=== PATIENT | female | born 1995 | race Hispanic/Latino ===

== ENCOUNTER 2018-01-01 01:41 | Emergency (ER) | payer OTHER ==
--- NOTE | 2018-01-01 03:27 | ER ---
Nurse's Notes [facility] Name: Ling Bauman Age: 22 yrs Sex: Female : 1995 Arrival Date: 01/01/2018 Time: 01:45 Bed 19 Private MD: Diagnosis: Otitis media, unspecified, bilateral Presentation: 01/01 02:02 Presenting complaint: Patient states: congestion and not feeling well x 2 days. Reports aa1 when she lays down to go to sleep she can't breathe. Pt is also 18 weeks . Transition of care: patient was not received from another setting of care. Onset of symptoms was December 29, 2017. Care prior to arrival: None. 02:02 Method Of Arrival: Ambulatory aa1 02:02 Acuity: MARCELLA 4 aa1 Triage Assessment: 02:03 General: Appears in no apparent distress. comfortable, Behavior is calm, cooperative, aa1 appropriate for age. 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 - Social history:: Smoking status: Patient/guardian denies using tobacco. Screenin:13 Abuse screen: Denies threats or abuse. Nutritional screening: No deficits noted. jd3 Tuberculosis screening: No symptoms or risk factors identified. Fall Risk None identified. Assessment: 02:07 General: Appears in no apparent distress. Behavior is calm, cooperative, appropriate jd3 for age. 02:08 Pain: Denies pain. Neuro: Level of Consciousness is awake, alert, obeys commands, jd3 Oriented to person, place, time, situation. Cardiovascular: Heart tones S1 S2 present Capillary refill < 3 seconds Patient's skin is warm and dry. Respiratory: Reports "stuffy nose and drainage" Airway is patent Respiratory effort is even, unlabored, Respiratory pattern is regular, symmetrical, Breath sounds are clear bilaterally. GI: No signs and/or symptoms were reported involving the gastrointestinal system. : No signs and/or symptoms were reported regarding the genitourinary system. EENT: No signs and/or symptoms were reported regarding the EENT system. Derm: Skin is intact, Skin is dry, Skin is normal, Skin temperature is warm. Musculoskeletal: Circulation, motion, and sensation intact. Range of motion: intact in all extremities. 03:13 Reassessment: Patient appears in no apparent distress at this time. Patient and/or jd3 family updated on plan of care and expected duration. Pain level reassessed. Patient is alert, oriented x 3, equal unlabored respirations, skin warm/dry/pink. 03:42 Reassessment: Patient appears in no apparent distress at this time. Patient and/or jd3 family updated on plan of care and expected duration. Pain level reassessed. Patient is alert, oriented x 3, equal unlabored respirations, skin warm/dry/pink. pt reported understanding of discharge instructions, even and steady gait noted upon discharge. Vital Signs: 02:03 BP 122 / 74; Pulse 98; Resp 18; Temp 97.5(O); Pulse Ox 100% on R/A; Weight 74.84 kg; aa1 Height 5 ft. 4 in. (162.56 cm); Pain 0/10; 03:12 BP 116 / 63; Pulse 93; Resp 17 S; Pulse Ox 100% on R/A; Pain 0/10; jd3 02:03 Body Mass Index 28.32 (74.84 kg, 162.56 cm) aa1 ED Course: 01:45 Patient arrived in ED. am2 01:59 Ace Chavez PA is PHCP. cp 01:59 Ace Molina MD is Attending Physician. cp 02:03 Triage completed. aa1 02:03 Arm band placed on right wrist. Patient placed in an exam room, on a stretcher. aa1 02:07 Canelo Devlin, RN is Primary Nurse. jd3 03:13 Patient has correct armband on for positive identification. Bed in low position. Call jd3 light in reach. Side rails up X 1. Adult w/ patient. 03:39 No provider procedures requiring assistance completed. Patient did not have IV access jd3 during this emergency room visit. Administered Medications: No medications were administered Outcome: 03:27 Discharge ordered by . cp 03:42 Discharged to home ambulatory, with family. jd3 03:42 Condition: stable 03:42 Discharge instructions given to patient, family, Instructed on discharge instructions, follow up and referral plans. medication usage, Demonstrated understanding of instructions, follow-up care, medications, Prescriptions given X 1. 03:43 Patient left the ED. jd3 Signatures: Bhakti Melvin RN RN aa1 Ace Chavez PA PA cp Moreno, Amanda am2 Canelo Devlin RN RN jd3 Corrections: (The following items were deleted from the chart) 02:09 02:07 General: Appears in no apparent distress. Behavior is calm, cooperative, jd3 appropriate for age, jd3
--- NOTE | 2018-01-01 03:27 | EDPHYS ---
Physician Documentation [facility] Name: Ling Bauman Age: 22 yrs Sex: Female : 1995 Arrival Date: 01/01/2018 Time: 01:45 Bed 19 Private MD: ED Physician Ace Molina HPI: 01/01 02:15 This 22 yrs old Female presents to ER via Ambulatory with complaints of Nasal cp Congestion, Breathing Difficulty, 18 wks preg. 02:15 The patient or guardian reports nasal congestion. Onset: The symptoms/episode cp began/occurred 2 day(s) ago. Severity of symptoms: in the emergency department the symptoms are unchanged, despite home interventions. Associated signs and symptoms: Pertinent positives: earache, Pertinent negatives: fever, sore throat, cough. 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 - Social history:: Smoking status: Patient/guardian denies using tobacco. ROS: 02:20 Constitutional: Negative for body aches, chills, fever, poor PO intake. cp 02:20 Eyes: Negative for injury, pain, redness, and discharge. cp 02:20 ENT: Positive for ear pain, sinus congestion, nasal congestion, Negative for drainage from ear(s), sore throat, difficulty swallowing, difficulty handling secretions, hoarseness. 02:20 Respiratory: Negative for cough, wheezing. 02:20 Abdomen/GI: Negative for abdominal pain, nausea, vomiting, and diarrhea. 02:20 : Negative for urinary symptoms, vaginal bleeding, vaginal discharge. 02:20 Skin: Negative for cellulitis, rash. 02:20 Neuro: Negative for altered mental status, headache, weakness. 02:20 All other systems are negative. Exam: 02:25 Constitutional: The patient appears in no acute distress, alert, awake, cp non-diaphoretic, non-toxic, well developed, well nourished. 02:25 Head/face: Sinus tenderness, that is mild, is located over the right frontal sinus and cp left frontal sinus. 02:25 Eyes: Periorbital structures: appear normal, Pupils: equal, round, and reactive to light and accomodation, Extraocular movements: intact throughout, Conjunctiva: normal, no exudate, no injection, Sclera: no appreciated abnormality, Lids and lashes: appear normal, bilaterally. 02:25 ENT: External ear(s): are unremarkable, Ear canal(s): are normal, clear, TM's: bulging, is not appreciated, bilaterally, erythema, that is mild, bilaterally, Nose: nasal drainage, that is minimal, noted congestion, Mouth: Lips: moist, Oral mucosa: pink and intact, moist, Posterior pharynx: Airway: no evidence of obstruction, patent, Tonsils: are normal in appearance, Uvula: midline, swelling, is not appreciated, erythema, is not appreciated, exudate, is not appreciated. 02:25 Neck: ROM/movement: is normal, is supple, without pain, no range of motions limitations, Lymph nodes: no appreciated lymphadenopathy. 02:25 Chest/axilla: Inspection: normal, Palpation: is normal, no crepitus, no tenderness. 02:25 Cardiovascular: Rate: normal, Rhythm: regular. 02:25 Respiratory: the patient does not display signs of respiratory distress, Respirations: normal, no use of accessory muscles, no retractions, no splinting, no tachypnea, labored breathing, is not present, Breath sounds: are clear throughout, no decreased breath sounds, no stridor, no wheezing. 02:25 Abdomen/GI: Inspection: gravid appearance, is noted. 02:25 Skin: cellulitis, is not appreciated, no rash present. 02:25 Neuro: Orientation: to person, place \T\ time. Mentation: is normal, Cerebellar function: is grossly normal, Motor: moves all fours, strength is normal. Vital Signs: 02:03 BP 122 / 74; Pulse 98; Resp 18; Temp 97.5(O); Pulse Ox 100% on R/A; Weight 74.84 kg; aa1 Height 5 ft. 4 in. (162.56 cm); Pain 0/10; 03:12 BP 116 / 63; Pulse 93; Resp 17 S; Pulse Ox 100% on R/A; Pain 0/10; jd3 02:03 Body Mass Index 28.32 (74.84 kg, 162.56 cm) aa1 MDM: 01:59 Patient medically screened. cp 02:30 Differential Diagnosis: Bronchitis Influenza Sinusitis Otitis Media Other strep throat. cp 03:25 Data reviewed: vital signs, nurses notes, lab test result(s), and as a result, I will cp discharge patient. 03:25 Counseling: I had a detailed discussion with the patient and/or guardian regarding: the cp historical points, exam findings, and any diagnostic results supporting the discharge/admit diagnosis, lab results, to return to the emergency department if symptoms worsen or persist or if there are any questions or concerns that arise at home. Response to treatment: There is no appreciated change of the patient's symptoms at this time. 01/01 02:11 Order name: Influenza Screen (a \T\ B); Complete Time: 03:06 cp 01/01 03:06 Interpretation: Reviewed. cp Administered Medications: No medications were administered Disposition: 04:00 Chart complete. cp Disposition: 01/01/18 03:27 Discharged to Home. Impression: Otitis media, unspecified, bilateral. - Condition is Stable. - Discharge Instructions: Medicines During . - Prescriptions for Amoxicillin 875 mg Oral Tablet - take 1 tablet by ORAL route every 12 hours for 10 days; 20 tablet. - Medication Reconciliation Form, Thank You Letter, Antibiotic Education, Prescription Opioid Use form. - Follow up: Private Physician; When: 2 - 3 days; Reason: Recheck today's complaints. - Problem is new. - Symptoms are unchanged. Addendum: 01/03/2018 07:16 Co-signature as Attending Physician, Ace Molina MD I agree with the assessment and c lezama plan of care. Signatures: Dispatcher [employer] Bhakti Romeo, RN RN aa1 Ace Molina MD MD cha Page, Corey PA PA Canelo Bhatt, RN RN jd3
== END 2018-01-01 03:43 | disposition home or self-care (01) ==
LOC: ER 01:41
DX: H66.93 Otitis media, unspecified, bilateral (principal); Z3A.18 18 weeks gestation of pregnancy
CPT/HCPCS: 87804; 99282

== ENCOUNTER 2019-02-24 10:02 | Emergency (ER) | payer MEDICAID, OTHER ==
--- OUTSIDE RECORDS SUMMARY | 2019-02-24 10:04 | XMS REPORT ---
:1995 [facility] Address [address] [place] [address] Dr. Lopez [address] [place] [id number] Care Team Providers Name Role Phone Unavailable Unavailable Unavailable Problems This patient has no known problems. Allergies, Adverse Reactions, Alerts This patient has no known allergies or adverse reactions. Medications This patient has no known medications.
[2019-02-24] MEDS ORDERED: NA CHLORIDE 0.9% 1,000 ML ONE (11:00)
[2019-02-24 11:25] LABS: Absolute Lymphocytes (CBC) 1.4 K/uL (0.7-4.9); Absolute Monocytes 0.9 K/uL (0.1-1.3); Absolute Neutrophil 9.4 K/uL (1.8-8.0); Basophils % 0.2 % (0-1.3); Eosinophils % 1.9 % (0-4.4); Hematocrit 36.1 % (36.0-45.0); Lymphocytes % 11.6 % (15.3-44.8); Monocytes % 7.5 % (3.3-12.3); RBC Red Blood Cell Count 4.22 M/uL (3.86-4.86)
[2019-02-24] MEDS ORDERED: CEFTRIAXONE/SWI 1gm 1 GM/10 ML SYR ONE (11:33)
[2019-02-24 11:55] LABS: BUN Blood Urea Nitrogen 6 mg/dL (7-18); Bicarbonate 25 mmol/L (21-32); Glucose Level 85 mg/dL (74-106); HCG, Quantitative 25735 mIU/mL (1-3); Potassium 3.8 mmol/L (3.5-5.1); Sodium Level 139 mmol/L (136-145)
[2019-02-24 12:02] LABS: Urine Blood 2+ (NEG); Urine Glucose NEGATIVE (NEG); Urine Protein NEGATIVE (NEG); Urine Specific Gravity 1.015 (1.005-1.030); Urine pH 7.5 (5.0-7.0)
--- NOTE | 2019-02-24 12:47 | RAD REPORT ---
EXAM DESCRIPTION: US - OB Limited - 02/24/2019 12:28 pm CLINICAL HISTORY: ABD CRAMPING, age. COMPARISON: No comparisons FINDINGS: Limited obstetrical sonography was requested. A single transverse presenting gestation is identified. Heart rate normal. The estimated gestational age 17 weeks 1 day, [place] 08/03/2019. The placenta is grade 0, posterior in location. No placenta previa. The amniotic fluid grossly normal. Cervical canal is closed. IMPRESSION: Limited obstetrical sonography as detailed above.
--- NOTE | 2019-02-24 13:01 | EDPHYS ---
Physician Documentation [facility] Name: Ling Bauman Age: 23 yrs Sex: Female : 1995 Arrival Date: 02/24/2019 Time: 10:04 Bed 18 Private MD: ED Physician Ace Molina HPI: 02/24 12:04 This 23 yrs old Female presents to ER via Ambulatory with complaints of kely vaginal bleeding and cramping. 12:04 The patient presents with vaginal bleeding that is light. Onset: The symptoms/episode kely began/occurred 1 day(s) ago. Modifying factors: The symptoms are alleviated by nothing, the symptoms are aggravated by nothing. Associated signs and symptoms: The patient has no apparent associated signs or symptoms. Severity of symptoms: At their worst the symptoms were mild, in the emergency department the symptoms are unchanged. The patient is sexually active, reportedly has a single partner. 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 - Social history:: Smoking status: Patient/guardian denies using tobacco. - Ebola Screening: : No symptoms or risks identified at this time. - Family history:: not pertinent. ROS: 12:04 Constitutional: Negative for fever, chills, and weight loss, Eyes: Negative for injury, kely pain, redness, and discharge, ENT: Negative for injury, pain, and discharge, Neck: Negative for injury, pain, and swelling, Cardiovascular: Negative for chest pain, palpitations, and edema, Respiratory: Negative for shortness of breath, cough, wheezing, and pleuritic chest pain, Abdomen/GI: Negative for abdominal pain, nausea, vomiting, diarrhea, and constipation, Back: Negative for injury and pain, MS/Extremity: Negative for injury and deformity, Skin: Negative for injury, rash, and discoloration, Neuro: Negative for headache, weakness, numbness, tingling, and seizure, Psych: Negative for depression, anxiety, suicide ideation, homicidal ideation, and hallucinations, Allergy/Immunology: Negative for hives, rash, and allergies, Endocrine: Negative for neck swelling, polydipsia, polyuria, polyphagia, and marked weight changes, Hematologic/Lymphatic: Negative for swollen nodes, abnormal bleeding, and unusual bruising. 12:04 : Positive for vaginal bleeding. Exam: 12:04 Constitutional: This is a well developed, well nourished patient who is awake, alert, kely and in no acute distress. Head/Face: Normocephalic, atraumatic. Eyes: Pupils equal round and reactive to light, extra-ocular motions intact. Lids and lashes normal. Conjunctiva and sclera are non-icteric and not injected. Cornea within normal limits. Periorbital areas with no swelling, redness, or edema. ENT: Nares patent. No nasal discharge, no septal abnormalities noted. Tympanic membranes are normal and external auditory canals are clear. Oropharynx with no redness, swelling, or masses, exudates, or evidence of obstruction, uvula midline. Mucous membranes moist. Neck: Trachea midline, no thyromegaly or masses palpated, and no cervical lymphadenopathy. Supple, full range of motion without nuchal rigidity, or vertebral point tenderness. No Meningismus. Chest/axilla: Normal chest wall appearance and motion. Nontender with no deformity. No lesions are appreciated. Cardiovascular: Regular rate and rhythm with a normal S1 and S2. No gallops, murmurs, or rubs. Normal PMI, no JVD. No pulse deficits. Respiratory: Lungs have equal breath sounds bilaterally, clear to auscultation and percussion. No rales, rhonchi or wheezes noted. No increased work of breathing, no retractions or nasal flaring. Abdomen/GI: Soft, non-tender, with normal bowel sounds. No distension or tympany. No guarding or rebound. No evidence of tenderness throughout. Back: No spinal tenderness. No costovertebral tenderness. Full range of motion. Skin: Warm, dry with normal turgor. Normal color with no rashes, no lesions, and no evidence of cellulitis. MS/ Extremity: Pulses equal, no cyanosis. Neurovascular intact. Full, normal range of motion. Neuro: Awake and alert, GCS 15, oriented to person, place, time, and situation. Cranial nerves II-XII grossly intact. Motor strength 5/5 in all extremities. Sensory grossly intact. Cerebellar exam normal. Normal gait. Psych: Awake, alert, with orientation to person, place and time. Behavior, mood, and affect are within normal limits. Vital Signs: 10:14 BP 113 / 54; Pulse 90; Resp 18; Temp 98.1; Pulse Ox 100% on R/A; Weight 86.18 kg; ph Height 5 ft. 4 in. (162.56 cm); Pain 0/10; 12:51 BP 103 / 52; Pulse 78; Resp 17; Temp 97.8(O); Pulse Ox 99% on R/A; Pain 0/10; dh3 10:14 Body Mass Index 32.61 (86.18 kg, 162.56 cm) ph MDM: 10:05 Patient medically screened. [facility] 02/24 10:45 Order name: Quantitative Hcg; Complete Time: 12:03 [facility] 02/24 10:45 Order name: Abo/rh Typing; Complete Time: 12:03 [facility] 02/24 10:45 Order name: Basic Metabolic Panel; Complete Time: 12:03 [facility] 02/24 10:45 Order name: CBC with Diff; Complete Time: 12:03 [facility] 02/24 11:18 Order name: Urine Culture 02/24 11:22 Order name: Urine Dipstick--Ancillary (enter results); Complete Time: 12:36 02/24 10:45 Order name: Urine Test (obtain specimen); Complete Time: 11:15 [facility] 02/24 10:45 Order name: IV Saline Lock; Complete Time: 10:57 [facility] 02/24 10:45 Order name: Labs collected and sent; Complete Time: 10:57 [facility] 02/24 11:22 Order name: Urine --Ancillary (enter results); Complete Time: 12:36 eb 02/24 12:29 Order name: OB Limited; Complete Time: 12:59 EDAK 02/24 10:45 Order name: NPO; Complete Time: 10:48 [facility] 02/24 10:45 Order name: Urine Dipstick-Ancillary (obtain specimen); Complete Time: 11:15 [facility] Administered Medications: 10:56 Drug: NS 0.9% 1000 ml Route: IV; Rate: 1 bolus; Site: right antecubital; em 12:59 Follow up: IV Status: Completed infusion; IV Intake: 1000ml em 11:48 Drug: Rocephin 1 grams Route: IV; Rate: calculated rate; Site: right antecubital; 12:59 Follow up: Response: No adverse reaction; IV Status: Completed infusion; IV Intake: 10mlem Disposition: 02/24/19 12:59 Discharged to Home. Impression: Threatened . - Condition is Stable. - Discharge Instructions: Threatened Miscarriage, Vaginal Bleeding During , First Trimester, Vaginal Bleeding During , Second Trimester, Threatened Miscarriage, [id number], Pelvic Rest, Vaginal Bleeding During , Second Trimester, [id number]. - Prescriptions for Vitamin 27- 0.8 mg Oral Tablet - take 1 tablet by ORAL route once daily; 30 tablet. - Medication Reconciliation Form, Thank You Letter, Antibiotic Education, Prescription Opioid Use, Family Work Release form. - Follow up: Private Physician; When: 2 - 3 days; Reason: Recheck today's complaints, Continuance of care, Re-evaluation by your physician. Follow up: Tyler Johnson; When: 2 - 3 days; Reason: Recheck today's complaints, Re-evaluation by your physician. - Problem is new. - Symptoms have improved. Signatures: Dispatcher [employer] [facility] Ace Molina MD MD cha Munoz, Edgar, REGIONAL OPERATIONS MANAGER REGIONAL OPERATIONS MANAGER em Odalys Lemus RN RN Shi Bertrand RN RN ph Corrections: (The following items were deleted from the chart) 12:29 10:45 Transvaginal Ob+US.RAD.BRZ ordered. [facility] 13:29 12:59 02/24/2019 12:59 Discharged to Home. Impression: Threatened . Condition em is Stable. Discharge Instructions: Threatened Miscarriage, Vaginal Bleeding During , First Trimester, First Trimester of , [id number], First Trimester of , Threatened Miscarriage, [id number], Pelvic Rest. Prescriptions for Vitamin 27-0.8 mg Oral Tablet - take 1 tablet by ORAL route once daily; 30 tablet. and Forms are Medication Reconciliation Form, Thank You Letter, Antibiotic Education, Prescription Opioid Use. Follow up: Private Physician; When: 2 - 3 days; Reason: Recheck today's complaints, Continuance of care, Re-evaluation by your physician. Follow up: Tyler Johnson; When: 2 - 3 days; Reason: Recheck today's complaints, Re-evaluation by your physician. Problem is new. Symptoms have improved. kely
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
== END 2019-02-24 13:29 | disposition home or self-care (01) ==
LOC: ER 10:02
DX: O20.0 Threatened abortion (principal); Z3A.17 17 weeks gestation of pregnancy
CPT/HCPCS: 36415; 76815; 80048; 81003; 81025; 84702; 85025; 86900; 86901; 87086; 87088; 96361; 96365; 99284; J0696; J7030

== ENCOUNTER 2020-01-21 01:57 | Emergency (ER) | payer OTHER, SELFPAY ==
--- OUTSIDE RECORDS SUMMARY | 2020-01-21 02:00 | XMS REPORT ---
:1995 Author Organization [facility] t Address [address] [place] [address] Dr. Lopez [address] [place] [id number] Care Team Providers Name Role Phone Unavailable Unavailable Unavailable Problems This patient has no known problems. Allergies, Adverse Reactions, Alerts This patient has no known allergies or adverse reactions. Medications This patient has no known medications.
[2020-01-21] MEDS ORDERED: IBUPROFEN 400 MG TAB ONE (02:20)
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
[2020-01-21 02:55] VITALS: TEMP 99.7; O2SAT 99
[2020-01-21 02:56] VITALS: BP 130/79
== END 2020-01-21 02:34 | disposition home or self-care (01) ==
LOC: ER 01:57
PROC: 0JQ10ZZ Repair Face Subcutaneous Tissue and Fascia, Open Approach (ICD-10-PCS; principal; 2020-01-21)
DX: S01.81XA Laceration without foreign body of other part of head, initial encounter (principal); S06.0X0A Concussion without loss of consciousness, initial encounter; W22.8XXA Striking against or struck by other objects, initial encounter; Y93.9 Activity, unspecified; Y92.009 Unspecified place in unspecified non-institutional (private) residence as the place of occurrence of the external cause
CPT/HCPCS: 99284